=== PATIENT | male | born 1965 | race Caucasian/White ===

== ENCOUNTER 2023-04-17 07:13 | Day surgery (SDC) | payer OTHER ==
[2023-04-11 12:51] VITALS: BMI 29.9
[2023-04-17] MEDS ORDERED: PROPOFOL 120 ML ONE (07:52)
[2023-04-17 09:28] VITALS: RESP 16; TEMP 97.1
[2023-04-17 09:33] VITALS: BP 123/78; PULSE 81
== END 2023-04-17 09:58 | disposition home or self-care (01) ==
LOC: FASU-ENDO 07:13
PROVIDERS: ATTEND Internal Medicine Gastroenterology
PROC: 0DBP8ZX Excision of Rectum, Via Natural or Artificial Opening Endoscopic, Diagnostic (ICD-10-PCS; 2023-04-17)
PROC: 0DBH8ZX Excision of Cecum, Via Natural or Artificial Opening Endoscopic, Diagnostic (ICD-10-PCS; principal; 2023-04-17 08:54)
DX: Z12.11 Encounter for screening for malignant neoplasm of colon (principal); Z86.010 Personal history of colon polyps; D12.0 Benign neoplasm of cecum; K62.1 Rectal polyp
CPT/HCPCS: 88305-TC